=== PATIENT | male | born 1965 | race Caucasian/White ===

== ENCOUNTER 2018-05-05 19:03 | Inpatient (IN) ==
[2018-05-05] MEDS: dilTIAZem Drip 125 MG/125 ML PREMIX IV SCH (19:03)
[2018-05-05] MEDS ORDERED: DILTIAZEM 50 MG/10 ML VIAL IV STA (19:43)
[2018-05-05] MEDS ORDERED: DILTIAZEM 25 MG/5 ML VIAL IV ONE (19:48)
[2018-05-05] MEDS ORDERED: INSULIN REGULAR 100 UNIT/ML SUBCUT STA (20:17)
[2018-05-05] MEDS ORDERED: GLUCAGON 1 MG VIAL IM PRN (21:41)
[2018-05-05] MEDS ORDERED: MORPHINE 4 MG/1 ML VIAL IV PRN (21:41)
[2018-05-05] MEDS ORDERED: ONDANSETRON 4 MG/2 ML VIAL IV PRN (21:41)
[2018-05-05] MEDS ORDERED: DEXTROSE 50% 25 GM/50 ML SYRINGE IV PRN (21:41)
[2018-05-05] MEDS ORDERED: DOCUSATE SODIUM 100 MG CAPSULE PO PRN (21:41)
[2018-05-05] MEDS ORDERED: ACETAMINOPHEN 325 MG TABLET PO PRN (21:41)
[2018-05-05] MEDS ORDERED: ENOXAPARIN 40 MG/0.4 ML SYRINGE SUBCUT SCH (22:00)
[2018-05-06 01:00] LABS: Apearance,Urine CLEAR (Clear); Bilirubin,Urine Negative (Negative); Blood, Urine Negative (Negative); Glucose,Urine (UA) >=500 mg/dL (Negative); Ketones,Urine 5 mg/dL (Negative); Mucus,Urine Occasional /LPF (Occasional); Nitrite,Urine Negative (Negative); Protein,Urine Negative; Urine Color Yellow (Yellow); Urine Specific Gravity 1.028 (1.001-1.035); Urine Urobilinogen < 2.0 EU/DL (0.2-1.0); WBC,Urine <1 /HPF (0-6)
[2018-05-06 01:02] LABS: Barbiturates Screen,Urine Negative (Negative); Benzodiazepines Screen,Urine Negative (Negative); Cannabinoid Screen,Urine Negative (Negative); Opiate Screen,Urine Negative (Negative); Phencyclidine Screen,Urine Negative (Negative)
[2018-05-06 06:23] LABS: Basophils % 0.3 % (0.0-0.8); Eosinophils # 0.1 10*3/uL (0.0-0.87); Hematocrit 40.9 VOL% (42.0-52.0); Immature Granulocytes % 0.4 %; Immature Granulocytes Absolute 0.03 #; Lymphocytes # 1.8 10*3/uL (1.4-4.0); Lymphocytes % 25.6 % (21.2-54.2); Mean Corpuscular HGB Conc 34.2 GM/DL (32-36); Mean Corpuscular Hemoglobin 31 PG (27-34); Mean Corpuscular Volume 89.1 FL (87-102); Mean Platelet Volume 10.8 FL (9.6-12.0); Monocytes # 0.5 10*3/uL (0.11-0.8); Monocytes % 6.3 % (1.7-12.7); Neutrophils # 4.7 10*3/uL (1.4-7.4); Neutrophils % 66.4 % (38.7-73.9); Platelet Count 234 T/CUMM (130-400); Red Blood Count 4.59 MC/CUMM (3.8-5.5); White Blood Count 7.1 T/CUMM (4-12)
[2018-05-06 06:38] LABS: Alanine Aminotransferase 34 U/L (16-61); Albumin 3.4 G/DL (3.4-5.0); Alkaline Phosphatase 109 U/L (45-117); Aspartate Amino Transferase 15 U/L (0-37); Bilirubin,Total < 0.39 MG/DL (0.2-1.0); Blood Urea Nitrogen 22 MG/DL (7-18); Calcium 8.3 MG/DL (8.5-10.1); Cholesterol 126 MG/DL (50-200); Glucose 271 MG/DL (74-106); HDL Cholesterol 29 MG/DL (40-60); Potassium 3.9 MMOL/L (3.5-5.1); Risk Ratio 4.34; Sodium 136 MMOL/L (136-145); Total Protein 6.7 G/DL (6.4-8.3); Triglycerides 379 MG/DL (2-150); VLDL CHOLESTEROL 75.8 MG/DL
[2018-05-06] MEDS: dilTIAZem Drip 125 MG/125 ML PREMIX IV SCH (07:20)
[2018-05-06] MEDS: INSULIN REGULAR 100 UNIT/ML SUBCUT SCH ×4 (10:24→23:21)
[2018-05-06] MEDS: LISINOPRIL 10 MG TABLET PO SCH (10:27)
[2018-05-06] MEDS: ATORVASTATIN 40 MG TABLET PO SCH ×2 (10:28→12:33)
[2018-05-06] MEDS ORDERED: AMIODARONE INJ 450 MG in DEXTROSE 5% 241 ML IV SCH (11:30)
[2018-05-06] MEDS ORDERED: AMIODARONE 150 MG/3 ML VIAL ONE (11:46)
[2018-05-06] MEDS: FUROSEMIDE 40 MG TABLET PO SCH (11:48)
[2018-05-06] MEDS: CARVEDILOL 3.125 MG TABLET PO SCH ×2 (11:48→16:43)
[2018-05-06] MEDS: ASPIRIN EC 81 MG TABLET PO SCH (11:49)
[2018-05-06] MEDS: ENOXAPARIN 120 MG/0.8 ML SYRINGE SUBCUT SCH (12:33)
[2018-05-06] MEDS: AMIODARONE INJ 450 MG in DEXTROSE 5% 241 ML IV SCH ×2 (18:38→21:50)
[2018-05-06] MEDS ORDERED: INSULIN GLARGINE 100 UNIT/ML SUBCUT SCH (21:00)
[2018-05-07] MEDS: ENOXAPARIN 120 MG/0.8 ML SYRINGE SUBCUT SCH (00:22)
[2018-05-07 03:41] LABS: Basophils % 0.5 % (0.0-0.8); Eosinophils # 0.1 10*3/uL (0.0-0.87); Eosinophils % 1.2 % (0.00-10.9); Hematocrit 39.8 VOL% (42.0-52.0); Hemoglobin 13.6 GM/DL (14.0-18.0); Immature Granulocytes % 0.2 %; Immature Granulocytes Absolute 0.02 #; Lymphocytes # 2.8 10*3/uL (1.4-4.0); Lymphocytes % 35.3 % (21.2-54.2); Mean Corpuscular HGB Conc 34.2 GM/DL (32-36); Mean Corpuscular Hemoglobin 31 PG (27-34); Mean Platelet Volume 11.2 FL (9.6-12.0); Monocytes # 0.5 10*3/uL (0.11-0.8); Monocytes % 6.5 % (1.7-12.7); Neutrophils # 4.5 10*3/uL (1.4-7.4); Neutrophils % 56.3 % (38.7-73.9); Platelet Count 218 T/CUMM (130-400); Red Blood Count 4.42 MC/CUMM (3.8-5.5)
[2018-05-07 04:04] LABS: Calcium 8.3 MG/DL (8.5-10.1); Potassium 3.3 MMOL/L (3.5-5.1)
[2018-05-07] MEDS: POTASSIUM CHLORIDE 20 MEQ TABLET PO PRN ×3 (06:28→13:16)
[2018-05-07] MEDS: CARVEDILOL 3.125 MG TABLET PO SCH ×2 (09:35→16:32)
[2018-05-07] MEDS: FUROSEMIDE 40 MG TABLET PO SCH (09:35)
[2018-05-07] MEDS: LISINOPRIL 10 MG TABLET PO SCH (09:36)
[2018-05-07] MEDS: ASPIRIN EC 81 MG TABLET PO SCH (09:36)
[2018-05-07] MEDS: ATORVASTATIN 40 MG TABLET PO SCH (09:36)
[2018-05-07] MEDS: INSULIN REGULAR 100 UNIT/ML SUBCUT SCH ×3 (09:41→16:32)
[2018-05-07] MEDS: AMIODARONE INJ 450 MG in DEXTROSE 5% 241 ML IV SCH (09:42)
[2018-05-07] MEDS ORDERED: AMIODARONE 200 MG TABLET PO SCH (10:00)
[2018-05-07] MEDS ORDERED: MAGNESIUM SULF RIDER 2 GM in PREMIX 1 EACH IV ONE ×2 (12:05→14:31)
[2018-05-07] MEDS: POTASSIUM CHLORIDE RIDER 10 MEQ in PREMIX 1 EACH IV SCH ×2 (14:28→14:29)
[2018-05-07 16:10] VITALS: BP 155/101
[2018-05-07] MEDS ORDERED: APIXABAN 5 MG TABLET PO SCH (21:00)
== END 2018-05-07 17:45 | disposition home or self-care (01) | DRG 309 ==
LOC: EDUNIT# → N.EDINP 19:03 → N.ED 19:03 → SUATTDRO 20:01 → N.TELES 21:23 → SUATTDRO 05-06 16:45
PROVIDERS: ADMIT Internal Medicine; ATTEND Internal Medicine Geriatric Medicine

== ENCOUNTER 2021-07-11 16:10 | Inpatient (IN) ==
[2021-07-11 16:52] LABS: Basophils % 0.6 % (0.0-0.8); Eosinophils # 0.1 10*3/uL (0.0-0.87); Eosinophils % 1.9 % (0.00-10.9); Hematocrit 40.8 VOL% (42.0-52.0); Hemoglobin 14.4 GM/DL (14.0-18.0); Immature Granulocytes % 0.4 %; Immature Granulocytes Absolute 0.02 #; Lymphocytes # 1.5 10*3/uL (1.4-4.0); Lymphocytes % 28.5 % (21.2-54.2); Mean Corpuscular HGB Conc 35.3 GM/DL (32-36); Mean Corpuscular Volume 89.1 FL (87-102); Mean Platelet Volume 10.4 FL (9.6-12.0); Monocytes % 6.7 % (1.7-12.7); Neutrophils % 61.9 % (38.7-73.9); Platelet Count 255 T/CUMM (130-400); Red Blood Count 4.58 MC/CUMM (3.8-5.5); Red Cell Distribution Width 13.6 % (9.3-17.3); White Blood Count 5.4 T/CUMM (4-12)
[2021-07-11] MEDS ORDERED: LABETALOL 20 MG/4 ML SYRINGE IV STA (17:01)
[2021-07-11 17:07] LABS: INR 0.9; PT Patient Result 10.3 SECS (10.5-12.0)
[2021-07-11 17:38] LABS: Albumin 3.8 G/DL (3.4-5.0); Bilirubin,Total 1.4 MG/DL (0.20-1.00); Calcium 8.8 MG/DL (8.5-10.1); Osmolality,Calculated 278.1 MOS/KG (273-304); Potassium 3.7 MMOL/L (3.5-5.1); Total Protein 7.8 G/DL (6.4-8.2)
[2021-07-11 17:54] LABS: Bilirubin,Urine Negative (Negative); Blood, Urine Small mg/dL (Negative); Glucose,Urine (UA) Negative (Negative); Ketones,Urine Negative (Negative); Nitrite,Urine Negative (Negative); Protein,Urine Negative (Negative); Urine Appearance Clear (Clear); Urine Color Yellow (Yellow); Urine Specific Gravity 1.025 (1.001-1.035); Urine Urobilinogen 0.2 eU/dL (<2.0)
[2021-07-11 17:57] LABS: Mucus,Urine Occasional /LPF (Occasional); RBC,Urine 9 /HPF (0-4)
[2021-07-11 18:20] LABS: Barbiturates Screen,Urine Negative (Negative); Benzodiazepines Screen,Urine Negative (Negative); Cannabinoid Screen,Urine Negative (Negative); Opiate Screen,Urine Negative (Negative); Phencyclidine Screen,Urine Negative (Negative)
[2021-07-11] MEDS ORDERED: ASPIRIN CHEW 81 MG TABLET PO STA (22:59)
[2021-07-11] MEDS ORDERED: APIXABAN 5 MG TABLET PO SCH (23:00)
[2021-07-11] MEDS ORDERED: ONDANSETRON 4 MG/2 ML VIAL IV PRN (23:55)
[2021-07-11] MEDS ORDERED: GLUCAGON 1 MG VIAL IM PRN (23:55)
[2021-07-12] MEDS ORDERED: DEXTROSE 10% 250 ML BAG IV PRN (00:06)
[2021-07-12] MEDS: LACTATED RINGERS 1,000 ML IV SCH ×2 (03:38→17:01)
[2021-07-12 05:48] LABS: Basophils % 0.6 % (0.0-0.8); Eosinophils # 0.1 10*3/uL (0.0-0.87); Eosinophils % 1.2 % (0.00-10.9); Hematocrit 37.2 VOL% (42.0-52.0); Hemoglobin 12.8 GM/DL (14.0-18.0); Immature Granulocytes % 0.2 %; Immature Granulocytes Absolute 0.01 #; Lymphocytes # 1.1 10*3/uL (1.4-4.0); Mean Corpuscular HGB Conc 34.4 GM/DL (32-36); Mean Corpuscular Volume 89.9 FL (87-102); Mean Platelet Volume 10.5 FL (9.6-12.0); Monocytes % 7.5 % (1.7-12.7); Neutrophils % 69.5 % (38.7-73.9); Platelet Count 180 T/CUMM (130-400); Red Blood Count 4.14 MC/CUMM (3.8-5.5); Red Cell Distribution Width 13.4 % (9.3-17.3); White Blood Count 5.2 T/CUMM (4-12)
[2021-07-12 06:11] LABS: Calcium 8.4 MG/DL (8.5-10.1); Potassium 3.6 MMOL/L (3.5-5.1); Risk Ratio 3.88; Thyroid Stimulating Hormone 3.23 uIU/ml (0.358-3.74); VLDL Cholesterol 55.6 MG/DL
[2021-07-12] MEDS: INSULIN REGULAR 100 UNIT/ML SUBCUT SCH ×4 (07:30→22:13)
[2021-07-12] MEDS ORDERED: carvediloL 3.125 MG TABLET PO SCH (08:00)
[2021-07-12] MEDS ORDERED: ATORVASTATIN 40 MG TABLET PO SCH ×2 (09:00→21:00)
[2021-07-12] MEDS: amLODIPine 10 MG TABLET PO SCH (11:03)
[2021-07-12] MEDS: APIXABAN 5 MG TABLET PO SCH ×2 (11:03→22:12)
[2021-07-12] MEDS: ASPIRIN EC 81 MG TABLET PO SCH (11:03)
[2021-07-12] MEDS: carvediloL 12.5 MG TABLET PO SCH ×2 (15:43→22:12)
[2021-07-12] MEDS: OMEGA 3 ACID ETHYL ESTERS 1 GM CAPSULE PO SCH ×2 (15:43→22:12)
[2021-07-13] MEDS: INSULIN REGULAR 100 UNIT/ML SUBCUT SCH ×4 (08:02→21:15)
[2021-07-13] MEDS: DAPAGLIFLOZIN 10 MG TABLET PO SCH (08:03)
[2021-07-13] MEDS: ASPIRIN EC 81 MG TABLET PO SCH (08:03)
[2021-07-13] MEDS: carvediloL 12.5 MG TABLET PO SCH ×2 (08:03→21:15)
[2021-07-13] MEDS: APIXABAN 5 MG TABLET PO SCH ×2 (08:03→21:15)
[2021-07-13] MEDS: OMEGA 3 ACID ETHYL ESTERS 1 GM CAPSULE PO SCH ×2 (08:03→21:15)
[2021-07-13] MEDS: amLODIPine 10 MG TABLET PO SCH (08:03)
[2021-07-13] MEDS: ATORVASTATIN 80 MG TABLET PO SCH (21:15)
[2021-07-14] MEDS: INSULIN REGULAR 100 UNIT/ML SUBCUT SCH ×4 (08:26→21:46)
[2021-07-14] MEDS: OMEGA 3 ACID ETHYL ESTERS 1 GM CAPSULE PO SCH ×2 (08:27→21:49)
[2021-07-14] MEDS: amLODIPine 10 MG TABLET PO SCH (08:27)
[2021-07-14] MEDS: CLOPIDOGREL 75 MG TABLET PO SCH (08:27)
[2021-07-14] MEDS: carvediloL 12.5 MG TABLET PO SCH ×2 (08:27→21:42)
[2021-07-14] MEDS: DAPAGLIFLOZIN 10 MG TABLET PO SCH (08:28)
[2021-07-14] MEDS: APIXABAN 5 MG TABLET PO SCH ×2 (08:28→21:45)
[2021-07-14] MEDS: ATORVASTATIN 80 MG TABLET PO SCH (21:48)
[2021-07-15] MEDS: ACETAMINOPHEN 325 MG TABLET PO PRN ×3 (00:30→10:43)
[2021-07-15] MEDS: OMEGA 3 ACID ETHYL ESTERS 1 GM CAPSULE PO SCH ×2 (08:29→22:02)
[2021-07-15] MEDS: CLOPIDOGREL 75 MG TABLET PO SCH (08:29)
[2021-07-15] MEDS: INSULIN REGULAR 100 UNIT/ML SUBCUT SCH ×4 (08:29→22:02)
[2021-07-15] MEDS: carvediloL 12.5 MG TABLET PO SCH ×2 (08:29→22:02)
[2021-07-15] MEDS: DAPAGLIFLOZIN 10 MG TABLET PO SCH (08:30)
[2021-07-15] MEDS: APIXABAN 5 MG TABLET PO SCH ×2 (08:30→22:02)
[2021-07-15] MEDS: amLODIPine 10 MG TABLET PO SCH (08:30)
[2021-07-15] MEDS: INDOMETHACIN 25 MG CAPSULE PO SCH ×3 (10:58→22:02)
[2021-07-15] MEDS: ATORVASTATIN 80 MG TABLET PO SCH (22:03)
[2021-07-16] MEDS: DAPAGLIFLOZIN 10 MG TABLET PO SCH (08:51)
[2021-07-16] MEDS: CLOPIDOGREL 75 MG TABLET PO SCH (08:51)
[2021-07-16] MEDS: OMEGA 3 ACID ETHYL ESTERS 1 GM CAPSULE PO SCH (08:51)
[2021-07-16] MEDS: carvediloL 12.5 MG TABLET PO SCH (08:51)
[2021-07-16] MEDS: INSULIN REGULAR 100 UNIT/ML SUBCUT SCH ×3 (08:52→16:16)
[2021-07-16] MEDS: APIXABAN 5 MG TABLET PO SCH (08:52)
[2021-07-16] MEDS: amLODIPine 10 MG TABLET PO SCH (08:52)
[2021-07-16] MEDS ORDERED: INDOMETHACIN 25 MG CAPSULE PO PRN (09:40)
[2021-07-16 16:21] VITALS: BP 152/84
== END 2021-07-16 18:07 | DRG 65 ==
LOC: N.5E 16:10 → N.ED 16:10 → SUATTDRO 23:55 → N.5E 07-12 00:56
PROVIDERS: ADMIT Hospitalist; ATTEND Internal Medicine Geriatric Medicine

== ENCOUNTER 2021-07-31 21:26 | Observation (INO) ==
[2021-07-31 22:13] LABS: Basophils % 0.5 % (0.0-0.8); Eosinophils # 0.1 10*3/uL (0.0-0.87); Eosinophils % 1.2 % (0.00-10.9); Hematocrit 41.3 VOL% (42.0-52.0); Hemoglobin 14.5 GM/DL (14.0-18.0); Immature Granulocytes % 0.4 %; Immature Granulocytes Absolute 0.03 #; Lymphocytes % 27.7 % (21.2-54.2); Mean Corpuscular HGB Conc 35.1 GM/DL (32-36); Mean Corpuscular Volume 89.6 FL (87-102); Mean Platelet Volume 10.7 FL (9.6-12.0); Monocytes # 0.5 10*3/uL (0.11-0.8); Monocytes % 7.3 % (1.7-12.7); Neutrophils % 62.9 % (38.7-73.9); Platelet Count 283 T/CUMM (130-400); Red Blood Count 4.61 MC/CUMM (3.8-5.5); Red Cell Distribution Width 13.2 % (9.3-17.3); White Blood Count 7.3 T/CUMM (4-12)
[2021-07-31] MEDS ORDERED: SODIUM CHLORIDE 0.9% 1,000 ML IV STA (22:24)
[2021-07-31] MEDS ORDERED: METOPROLOL TARTRATE 5 MG/5 ML VIAL IV STA (22:24)
[2021-07-31 22:31] LABS: Alanine Aminotransferase 35 U/L (16-61); Albumin 3.8 G/DL (3.4-5.0); Alkaline Phosphatase 156 U/L (45-117); Aspartate Amino Transferase 17 U/L (0-37); Bilirubin,Total < 0.39 MG/DL (0.20-1.00); Blood Urea Nitrogen 33 MG/DL (7-18); Calcium 8.4 MG/DL (8.5-10.1); Carbon Dioxide 25 MMOL/L (21-32); Chloride 99 MMOL/L (98-107); Estimated Glom Filtration Rate 73 ML/MIN; Glucose 391 MG/DL (74-106); Osmolality,Calculated 292.1 MOS/KG (273-304); Potassium 3.5 MMOL/L (3.5-5.1); Sodium 135 MMOL/L (136-145); Total Protein 7.1 G/DL (6.4-8.2)
[2021-07-31 22:32] LABS: INR 0.9; PT Patient Result 10.2 SECS (10.5-12.0); Partial Thromboplastin Time 29.8 SECS (23.8-32.1)
[2021-07-31] MEDS ORDERED: ETOMIDATE 20 MG/10 ML VIAL IV ONE (23:22)
[2021-07-31] MEDS ORDERED: MAGNESIUM SULF RIDER 1 GM/100 ML PREMIX IV STA (23:45)
[2021-07-31] MEDS ORDERED: DILTIAZEM 25 MG/5 ML VIAL IV STA (23:58)
[2021-08-01] MEDS ORDERED: diphenhydrAMINE CAP 25 MG CAPSULE PO PRN (00:09)
[2021-08-01] MEDS ORDERED: ACETAMINOPHEN 325 MG TABLET PO PRN (00:09)
[2021-08-01] MEDS ORDERED: BISACODYL 5 MG TABLET PO PRN (00:09)
[2021-08-01] MEDS ORDERED: MORPHINE 2 MG/1 ML SYRINGE IV PRN (00:09)
[2021-08-01] MEDS ORDERED: guaiFENesin/DM ER 600-30 MG TABLET PO PRN (00:09)
[2021-08-01] MEDS ORDERED: DEXTROSE 10% 250 ML BAG IV PRN (00:09)
[2021-08-01] MEDS ORDERED: NICOTINE 21 MG/24 HR PATCH TRANSDERM PRN (00:09)
[2021-08-01] MEDS ORDERED: ZALEPLON 5 MG CAPSULE PO PRN (00:09)
[2021-08-01] MEDS ORDERED: ONDANSETRON 4 MG/2 ML VIAL IV PRN (00:09)
[2021-08-01] MEDS ORDERED: GLUCAGON 1 MG VIAL IM PRN ×2 (00:09)
[2021-08-01] MEDS ORDERED: DEXTROSE 50% 25 GM/50 ML VIAL IV PRN (00:09)
[2021-08-01] MEDS ORDERED: FUROSEMIDE 40 MG/4 ML VIAL IV STA (00:14)
[2021-08-01] MEDS ORDERED: INSULIN REGULAR 100 UNIT/ML SUBCUT ONE (01:22)
[2021-08-01 05:40] LABS: Basophils % 0.6 % (0.0-0.8); Eosinophils # 0.1 10*3/uL (0.0-0.87); Eosinophils % 1.7 % (0.00-10.9); Hemoglobin 13.2 GM/DL (14.0-18.0); Immature Granulocytes % 0.5 %; Immature Granulocytes Absolute 0.03 #; Lymphocytes # 1.6 10*3/uL (1.4-4.0); Lymphocytes % 25.1 % (21.2-54.2); Mean Corpuscular HGB Conc 34.7 GM/DL (32-36); Mean Corpuscular Volume 90.7 FL (87-102); Monocytes # 0.5 10*3/uL (0.11-0.8); Monocytes % 7.6 % (1.7-12.7); Neutrophils % 64.5 % (38.7-73.9); Platelet Count 210 T/CUMM (130-400); Red Blood Count 4.19 MC/CUMM (3.8-5.5); Red Cell Distribution Width 13.3 % (9.3-17.3); White Blood Count 6.3 T/CUMM (4-12)
[2021-08-01 07:06] LABS: Calcium 8.5 MG/DL (8.5-10.1); Osmolality,Calculated 289.8 MOS/KG (273-304); Potassium 3.3 MMOL/L (3.5-5.1); Risk Ratio 3.67; VLDL Cholesterol 48.8 MG/DL
[2021-08-01] MEDS ORDERED: amLODIPine 10 MG TABLET PO SCH (09:00)
[2021-08-01] MEDS ORDERED: METOPROLOL SUCCINATE XL 50 MG TABLET PO SCH (09:00)
[2021-08-01] MEDS ORDERED: DAPAGLIFLOZIN 10 MG TABLET PO SCH (09:00)
[2021-08-01] MEDS ORDERED: CLOPIDOGREL 75 MG TABLET PO SCH (09:00)
[2021-08-01] MEDS ORDERED: PANTOPRAZOLE 40 MG TABLET PO SCH (09:00)
[2021-08-01] MEDS ORDERED: APIXABAN 5 MG TABLET PO SCH (09:00)
[2021-08-01] MEDS ORDERED: POTASSIUM CHLORIDE 20 MEQ TABLET PO ONE (09:39)
[2021-08-01] MEDS ORDERED: POTASSIUM CHLORIDE 20 MEQ TABLET PO SCH ×2 (10:00→11:30)
[2021-08-01] MEDS: INSULIN LISPRO 100 UNIT/ML SUBCUT SCH ×3 (10:13→16:51)
[2021-08-01] MEDS ORDERED: MAGNESIUM SULF INJ 3 GM in SODIUM CHLORIDE 0.9% 100 ML IV ONE (11:00)
[2021-08-01] MEDS ORDERED: AMIODARONE 200 MG TABLET PO SCH (11:30)
[2021-08-01] MEDS ORDERED: ASCORBIC ACID 500 MG TABLET PO SCH (11:30)
[2021-08-01] MEDS ORDERED: MAGNESIUM OXIDE 400 MG TABLET PO SCH (11:30)
[2021-08-01 13:24] LABS: Potassium 3.9 MMOL/L (3.5-5.1)
[2021-08-01] MEDS: POTASSIUM CHLORIDE RIDER 10 MEQ/100 ML PREMIX IV SCH (14:36)
[2021-08-01 14:58] VITALS: BP 156/73
== END 2021-08-01 18:27 | disposition home or self-care (01) ==
LOC: N.ED 21:26 → N.EDINP 21:26 → SUATTDRO 08-01 00:09 → N.TELES 08-01 01:03
PROVIDERS: ADMIT Internal Medicine Geriatric Medicine; ATTEND Internal Medicine